=== PATIENT | male | born 1975 | race Caucasian/White ===

== ENCOUNTER 2019-06-01 21:11 | Inpatient (IN) | payer MEDICAID, SELFPAY ==
--- NOTE | ~2019-06-01 | XR_ITS ---
EXAMINATION: XR chest 2V EXAM DATE: 06/01/2019 22:41 INDICATION: Seizure. TECHNIQUE: Portable AP frontal chest x-ray was obtained. There is no prior study for comparison. FINDINGS: The lungs are clear. There are no pleural effusions. Cardiac silhouette is prominent but magnified on this AP technique. There is no pneumothorax suspected. The bones and soft tissues are unremarkable. IMPRESSION: No acute cardiopulmonary findings. Reviewed, dictated and finalized at location A.
--- NOTE | ~2019-06-01 | CT_ITS ---
EXAMINATION: CT brain wo con EXAM DATE: 06/01/2019 22:28 INDICATION: Seizure. Headache. TECHNIQUE: Spiral CT of the head was performed without contrast. Axial, coronal and sagittal images were reviewed. The dose-length product (DLP) for this examination was 681.00 mGy-cm. The exposure w as tailored according to patient size, and iterative reconstruction (ASIR) was used as additional dos e reduction technique. There is no prior study for comparison. FINDINGS: There is no acute intraparenchymal hemorrhage. No evidence of intraparenchymal brain mass lesion. No evidence of acute infarction. There is no mass effect or midline shift. The ventricles are normal in size. There are no extra-axial collections. There are no acute calvarial fractures. T he orbits are unremarkable. Soft tissue is unremarkable. The visualized sinuses and mastoid air jaimee ls are well aerated. IMPRESSION: 1. No acute intracranial findings. Reviewed, dictated and finalized at location A.
[2019-06-01 21:15] VITALS: BP 117/74; PULSE 73; RESP 16; TEMP 36.9; O2SAT 100
--- NOTE | 2019-06-01 21:22 | ECG_ITS ---
Measurements Intervals [place] Rate: 70 P: 71 DE: 132 QRS: 84 QRSD: 116 T: 84 QT: 388 QTc: 420 Interpretive Statements SINUS RHYTHM WITH SINUS ARRHYTHMIA RSR' IN V1 OR V2, CONSIDER RIGHT VENTRICULAR HYPERTROPHY OR RIGHT VCD ST ELEVATION IN DIFFUSE LEADS- PROBABLY EARLY REPOLARIZATION BASELINE WANDER- I, AVR, AVL, AVF BORDERLINE ECG Electronically Signed On 06-02-2019 7:42:13 CDT by Cornelius Carmichael D.O.
--- NOTE | 2019-06-01 21:23 | ED.GENADULT ---
HPI - General Adult General Chief complaint: Seizure Stated complaint: sz Time Seen by Provider: 06/01/19 21:23 Source: patient Mode of arrival: wheelchair Limitations: no limitations History of Present Illness HPI narrative: Patient is a 44-year-old male with a history of seizure disorder currently taking Keppra who presents for evaluation of numerous breakthrough seizures. Patient reportedly was seen at [facility] yesterday due to numerous breakthrough seizures had an overnight observation was discharged home with a prescription for Keppra 500 mg twice daily, but family states they have continued to have 5 seizures today. Patient at times will have urinary incontinence, no respiratory symptoms that the patient's has noticed. Patient's states that he has been taking Benadryl nightly to help him sleep, patient reports alcohol use, but the patient's states that there is no alcohol kept in their home. When I asked the patient, he states he gets alcohol from the dryer. Otherwise, the patient is alert and oriented to person, place and to time. He is not forthcoming with information. He is not currently postictal. He is able to follow commands and has no complaints. Patient also reports daily marijuana use, he denies other drug use. Patient's states that she does not know much about his medical information because he does not share all of this with her. She believes that he may be taking some testosterone supplementation which he gets through mail order prescription. Per chart review, patient has also been on Dilantin in the past. Pt has not been medicated for seizures until yesterday per family. states patient had been off of medication for over 18 months and did not have any recurrent seizures until yesterday. Pt's does now know the name of former neurologist. Related Data Allergies Allergy/AdvReac Type Severity Reaction Status Date / Time No Known Allergies Allergy Mild Unverified 12/15/03 08:35 Review of Systems Review of Systems: Narrative: CONSTITUTIONAL: Denies fever, chills, or sweats. EYES: Denies visual changes, redness, or discharge. ENT: Denies rhinorrhea, congestion, sore throat, or otalgia. CARDIOVASCULAR: Denies chest pain, palpitations, or edema. RESPIRATORY: Denies cough or dyspnea. GASTROINTESTINAL: Denies abdominal pain, nausea, vomiting, or diarrhea. GENITOURINARY: Denies dysuria or hematuria. SKIN: Denies rash or itching. MUSCULOSKELETAL: Denies back pain, joint pain, or myalgia. NEUROLOGIC: Denies headache, numbness, or weakness. PSYCHIATRIC: Reports anxiety and difficulty sleeping PMFSH Past Medical History Medical History (Updated 06/01/19 @ 23:45 by Mari Bonner MD) Closed fracture nasal bone History of seizure Marijuana use Sialadenitis Surgical History Surgical History (Updated 06/01/19 @ 21:58 by Mari Bonner MD) History of nasal surgery Social History Social History (Updated 06/01/19 @ 21:58 by Mari Bonner MD) Smoking status: Current every day smoker Tobacco type: cigarettes Alcohol intake: current Substance use: current Substance use type: marijuana Living arrangements: with family Gender identity (if verbalized by the patient): Male Exam Narrative: Exam Narrative: GENERAL: Awake, alert, conversant HEAD: Normocephalic, atraumatic. EYES: PERRLA and EOMI. ENT: Nares clear, no rhinorrhea or epistaxis. Mucous membranes moist. No tongue laceration or abrasions. NECK: Supple. CHEST: No respiratory distress, breathing even and non labored HEART: Regular rate, sinus rhythm ABDOMEN:Non distended, non tender EXTREMITIES: Normal range of motion. No edema. SKIN: Warm, dry, no rash. NEURO:No focal deficits. Alert and oriented x3. Finger to nose intact bilaterally. EOMs intact without nystagmus. No facial droop/asymmetry noted bilaterally. Grimace intact. Intact sensation in face. Hearing intact bilaterally. Shoulder shrug intact.
[2019-06-01] MEDS: levETIRAcetam 1000MG/NACL100ML 1,000 MG/100 ML BAG 400 MG IVPB (21:55)
[2019-06-01 21:57] VITALS: PULSE 75
[2019-06-01 22:00] LABS: Basophils Absolute Auto 0.1 K/mm3 (0.0-0.1); Basophils Percent Auto 0.9 % (0.2-1.2); Eosinophils Absolute Auto 0.2 K/mm3 (0-0.3); Eosinophils Percent Auto 1.2 % (0-4.4); Hemoglobin 12.9 g/dL (14.0-18.0); Immature Granulocyte Absolute 0.04 K/mm3 (0.00-0.031); Immature Granulocyte Percent A 0.3 % (0-0.5); Lymphocytes Absolute Auto 3.26 K/mm3 (0.9-3.2); Lymphocytes Percent Auto 26.1 % (18.3-44.2); Mean Corpuscular HGB Conc 32.3 g/dl (32-36); Mean Corpuscular Volume 89.9 fl (80-100); Mean Platelet Volume 11.1 fl (7.4-10.4); Monocytes Absolute Auto 0.8 K/mm3 (0.1-0.6); Monocytes Percent Auto 6.4 % (2.6-8.5); Neutrophils Absolute Auto 8.1 K/mm3 (1.3-6.7); Neutrophils Percent Auto 65.1 % (45.5-73.1); Platelet Count Result 390 k/mm3 (150-375); Red Blood Count 4.45 M/mm3 (4.6-6.20); Red Cell Distribution Width 14.4 % (11.5-14.5); White Blood Count 12.5 K/mm3 (4.5-10.0)
[2019-06-01 22:04] VITALS: BP 131/85; PULSE 65; RESP 16; O2SAT 98
[2019-06-01] MEDS: LORAZEPAM INJ 2 MG/ML VIAL 1 MG IV PUSH (22:04)
[2019-06-01 22:12] LABS: Blood Urea Nitrogen 13 mg/dL (9-20); Calcium 8.5 mg/dL (8.4-10.2); Carbon Dioxide 26 mmol/L (22-30); Chloride 102 mmol/L (98-107); Estimated Glomerular Filt Rate > 60; Glucose 121 mg/dL (75-110); Potassium 3.3 mmol/L (3.4-5.0); Sodium 136 mmol/L (137-145)
--- NOTE | 2019-06-01 22:30 | PC.NURSE ---
pt down to ct
--- NOTE | 2019-06-01 23:00 | PC.NURSE ---
asked pt for urine.
[2019-06-01 23:32] VITALS: BP 117/74; PULSE 65; RESP 13; O2SAT 97
[2019-06-02 00:07] LABS: Add Urine Microscopic? YES; Appearance Urine Clear (Clear); Bacteria Urine Trace /hpf; Bilirubin Urine Negative (Negative); Blood Urine Negative (Negative); Color Urine Yellow (Yellow); Glucose Urine UA Negative (Negative); Ketones Urine Negative (Negative); Leukocyte Esterase Ur Negative LEU/UL (Negative); Mucus Urine Moderate /lpf; Nitrate Urine Negative (Negative); Protein Urine 1+ mg/dL (Negative)
[2019-06-02 00:10] LABS: Amphetamine Screen Urine Negative (Negative); Barbiturate Screen Urine Negative (Negative); Benzodiazepines Screen Urine Negative (Negative); Cannabinoid Screen Urine Positive (Negative); Cocaine Screen Urine Negative (Negative); Methadone Screen Urine Negative (Negative); Opiate Screen Urine Negative (Negative); Phencyclidine Screen Urine Negative (Negative)
[2019-06-02 00:17] VITALS: BP 109/52; PULSE 69; RESP 19; O2SAT 97
--- NOTE | 2019-06-02 00:30 | ADMGEN ---
This patient, Tristin Garza, was admitted to 2 Medical Room 257-01. Patient/family oriented to hospital policies and general routines including ID bracelet, bed and alarms, visiting hours, pain management, procedures, bathroom and other care routines, personal items, smoking policy, room service/diet, and visiting hours. Valuables list has been completed. Information on how to activate the Rapid Response Team has been discussed. Patient/Family are encouraged to report perceived risks to care and to ask questions if they do not understand what they are told or what they should do.
--- NOTE | 2019-06-02 01:55 | PM.IMHP ---
H&P: HPI History of Present Illness Chief complaint: Breakthrough Seizure Narrative: This is a 44 year old male with known history of seizure disorder who presented to our ER tonight after experiencing several seizures yesterday. Apparently the patient stopped taking his dilantin over 1 year ago and was doing well until he started to have seizures two days ago. He was seen at [facility] 2 days ago and discharged home on Keppra 500 mg BID. The patient's became worried this evening because the patient was having multiple seizures lasting about 1 minute in duration and appeared to stop breathing. The patient was evaluated in our ER and CT brain was unremarkable for any acute pathology. ER provider has consulted Neurology who has asked that we admit the patient to the hospital for further evaluation and observation. The patient has been loaded with keppra IV in the ER tonight. ON my encounter with the patient he is very somnolent and easy to arouse but quickly falls asleep as I attempt to get a history from him. No further details are obtainable at this time due to his somnolent state. The patient is alone and his family is not present. It is noteworthy that his did mention to the ER provider that the patient has a history of alcohol use although there is no alcohol at home. I also do not know how much dilantin the patient had been taking last year. Currently he denies any symptoms. Review of Systems Review of Systems: ROS unobtainable: Yes unobtainable due to medical condition and unobtainable due to mental status PMFSH Past Medical History Medical History Closed fracture nasal bone History of seizure Marijuana use Sialadenitis Surgical History Surgical History History of nasal surgery Social History Social History Smoking packs per day: 1 Smoking cigarettes per day: 20.0 Years smoked: 20 Smoking pack-years: 20.00 Smoking status: Current every day smoker Tobacco type: cigarettes Second hand tobacco smoke exposure: Yes Alcohol intake: current Drinks per week: 30 Substance use: never Substance use type: marijuana Living arrangements: with family Gender identity (if verbalized by the patient): Male Spiritual care concerns: No Agree to blood products: Yes Comments Family medical history is unknown and unobtainable at this time. Meds Home Medications and Allergies Allergies Allergy/AdvReac Type Severity Reaction Status Date / Time No Known Allergies Allergy Mild Unverified 12/15/03 08:35 Vital Signs Vital Signs - 24 hr 06/01/19 21:15 06/01/19 21:57 06/01/19 22:04 Temperature 36.9 C Pulse Rate 73 75 65 Respiratory Rate 16 16 Blood Pressure 117/74 131/85 Pulse Oximetry 100 98 06/01/19 23:32 06/02/19 00:17 Temperature Pulse Rate 65 69 Respiratory Rate 13 19 Blood Pressure 117/74 109/52 L Pulse Oximetry 97 97 Exam Const: General: cooperative, no acute distress and other (somnolent but arousable) Nutritional Appearance: well nourished Orientation/consciousness: oriented to person and oriented to place HENMT: Head: normal to inspection General nose exam: Normal external nose present Face and sinus: normal facial exam Mouth: Yes Normal oral and palatal mucosa present and Yes oropharynx normal Eyes: Pupils: Equal, round and reactive pupils present EOM: EOMs intact bilaterally Neck: Neck: supple and no JVD Thyroid: thyroid normal Lymphatic: lymphadenopathy not noted Resp: Effort & Inspection: normal respiratory effort Auscultation: clear to auscultation bilaterally Cardio: Rate: regular rate Rhythm: regular rhythm Heart sounds: no murmurs GI: Inspection: normal to inspection Auscultation: normal bowel sounds Skin: General skin exam: normal color and no rashes or lesions noted
[2019-06-02 02:00] VITALS: BP 105/56; PULSE 60; RESP 20; TEMP 36.2; O2SAT 99
[2019-06-02 02:39] VITALS: BMI 22.6
[2019-06-02] MEDS: KCL 20 MEQ/SW 100 ML 100 ML 50 MEQ IVPB (03:30)
[2019-06-02 04:00] VITALS: PULSE 65
[2019-06-02 05:34] LABS: Basophils Absolute Auto 0.1 K/mm3 (0.0-0.1); Basophils Percent Auto 0.8 % (0.2-1.2); Eosinophils Absolute Auto 0.2 K/mm3 (0-0.3); Eosinophils Percent Auto 1.6 % (0-4.4); Hematocrit 36.4 % (42.0-52.0); Hemoglobin 11.7 g/dL (14.0-18.0); Immature Granulocyte Absolute 0.04 K/mm3 (0.00-0.031); Immature Granulocyte Percent A 0.4 % (0-0.5); Lymphocytes Absolute Auto 1.97 K/mm3 (0.9-3.2); Lymphocytes Percent Auto 18.7 % (18.3-44.2); Mean Corpuscular HGB Conc 32.1 g/dl (32-36); Mean Corpuscular Hemoglobin 29.4 pg (26-34); Mean Corpuscular Volume 91.5 fl (80-100); Mean Platelet Volume 10.7 fl (7.4-10.4); Monocytes Absolute Auto 0.9 K/mm3 (0.1-0.6); Neutrophils Absolute Auto 7.5 K/mm3 (1.3-6.7); Neutrophils Percent Auto 70.5 % (45.5-73.1); Platelet Count Result 327 k/mm3 (150-375); Red Blood Count 3.98 M/mm3 (4.6-6.20); Red Cell Distribution Width 14.2 % (11.5-14.5); White Blood Count 10.6 K/mm3 (4.5-10.0)
[2019-06-02 05:45] LABS: Blood Urea Nitrogen 12 mg/dL (9-20); Calcium 8.3 mg/dL (8.4-10.2); Carbon Dioxide 26 mmol/L (22-30); Chloride 105 mmol/L (98-107); Estimated CRCL calculation 82 ml/min; Estimated Glomerular Filt Rate > 60; Glucose 99 mg/dL (75-110); Magnesium 2.2 mg/dL (1.6-2.3); Potassium 4.1 mmol/L (3.4-5.0); Sodium 136 mmol/L (137-145)
[2019-06-02 06:00] VITALS: BP 113/65; PULSE 57; RESP 20; TEMP 37; O2SAT 98
--- NOTE | 2019-06-02 06:14 | PC.NURSE ---
Addendum entered by Grupo Velasquez RN 06/02/19 06:22: time of event [id number] Original Note: Pt jumped over the rails of the bed and ran into the bathroom and closed the door, pt then turned off the bathroom lights and was found wiping the woods with toilet paper and vigorously unrolling the toilet paper from the wall. Pt needed to be physically pulled from the bathroom and told repeatedly to sit down. Pt then began to obsessively pulling at his IV, armband, and shredding toilet paper. Pt required frequent redirection away from items in the room and his IV; he would acknowledge he should not do it then immediately begin again as if unable to stop himself. Pt was not aggressive or violent towards the staff at anytime and was AOxself only. Dr Espitia was called to assess pt and neurology was consulted with recommendation as well. We were able to return the patient to bed and he was cooperative with the diazepam injection ordered.
[2019-06-02 06:44] LABS: Thyroid Stimulating Hormone Reflex 0.772 uIU/mL (0.465-4.68)
[2019-06-02 08:00] VITALS: PULSE 80
[2019-06-02] MEDS: levETIRAcetam 500 MG TABLET 1000 MG PO (09:08)
[2019-06-02 12:00] VITALS: PULSE 69
--- NOTE | 2019-06-02 12:03 | CONS_ITS ---
DATE OF CONSULTATION: HISTORY OF PRESENT ILLNESS: This 44-year-old has been admitted to [facility] through the emergency room for the complaint of recurrent seizures. Reportedly, patient is known to have seizure disorder, was supposed to take the Dilantin, which he started about 1 year ago and was doing well up until yesterday when he started having seizures. He was seen at [facility] about a couple of days ago and discharged home on Keppra 500 mg twice a day, but in the evening on the day of admission, he was having recurrences and brought him to the hospital. He was initially evaluated in the emergency room, where CT scan of the brain was done, which was unremarkable. The patient was loaded with Keppra intravenously in the emergency room. By the time he was seen by the hospital, he was definitely very somnolent. The patient does have ongoing history of alcohol use as well. In addition to the past history of marijuana use, nasal bone fracture, sialadenitis. He had history of smoking 20 packs per year and also currently smoking and drinking 30 per week. ALLERGIES: HE IS NOT ALLERGIC TO ANY MEDICATION. PHYSICAL EXAMINATION: VITAL SIGNS: Evaluation up until now revealed him to be afebrile with pulse of 73, respirations 16, blood pressure 117/74. HEAD: Normocephalic with no cranial bruit. Ear, nose, throat examination normal. NECK: Supple with no cervical bruit. No thyromegaly. No lymphadenopathy. HEART: Regular. LUNGS: Clear. ABDOMEN: Soft. NEUROLOGICAL: He is somnolent. Pupils were round regular. Ramirez of vision full. Extraocular movements full. Face symmetrical. Tongue midline. Motor examination revealed fairly symmetrical strength and reflexes sluggish. Plantars downgoing. LABORATORY STUDIES: Investigation up until now revealed him to have leukocytosis with WBC of 12.5, hemoglobin 12.9, platelet count of 390. Basic metabolic panel normal with the sodium of 136 and potassium 3.3, borderline low. UA is normal. CT scan of the head negative and chest x-ray also was negative. Since admission, the patient has been started on the same Keppra, which has been switched from the intravenous to p.o. and further adjustment will be made accordingly. JAIMIE Trever GREEN ICICLE MACHINE OPERATOR ICICLE MACHINE OPERATOR D I MT: Ezio
--- NOTE | 2019-06-02 13:21 | PM.DS ---
DS: Diagnosis Admitting Diagnosis Admitting Diagnosis: Epilepsy, unspecified, not intractable, without status epilepticus Discharge Diagnosis (1) Recurrent seizures: Code(s): G40.909 - Epilepsy, unspecified, not intractable, without status epilepticus Status: Acute Assessment and Plan: Recurrent seizures likely secondary to the patient's nonadherence with his antiepileptic medication Dilantin. Seizure precautions in place. Neurology was consulted from the ER and Dr. Padron evaluated the patient and feels like he can be discharged on Keppra 1000 mg Q12hrs. The patient denies picking up the Keppra prescription when he was discharged from [place] a few days ago. He was educated on compliance with medications to prevent further seizures from occurring. He does not have a Neurologist and will have him follow up with Dr. Padron in 2 weeks. He does not have a PCP to follow up with to get medication refills on his Keppra. He understands and agrees with the plan. All questions answered. (2) Leukocytosis: Qualifiers: Leukocytosis type: unspecified Qualified Code(s): D72.829 - Elevated white blood cell count, unspecified Code(s): D72.829 - Elevated white blood cell count, unspecified Status: Acute Assessment and Plan: Likely secondary to acute seizures. Slightly elevated still today it 10,600. Urinalysis was negative for any acute infection as well as chest x-ray. He denies any acute symptoms or illness. (3) Normocytic anemia: Code(s): D64.9 - Anemia, unspecified Status: Acute Assessment and Plan: acute vs. chronic anemia? No signs of acute blood loss. H&H has been stable with a hemoglobin of 11.7 and hematocrit 36.4%. Will have him follow-up with a primary care provider upon discharge. (4) Hypokalemia: Code(s): E87.6 - Hypokalemia Status: Acute Assessment and Plan: We will replace with 20 mEq of KCL. Potassium this morning was normal at 4.1. DS: Summary Hospital Course Reason for hospitalization: Patient is a 44-year-old man with a history of seizure disorder who presented to the emergency department after having multiple breakthrough seizures prior to arrival. The patient believes he was diagnosed with seizures about fiber 10 years ago. He was on Dilantin for multiple years and stopped taking the medication about 1 year ago. He did not have a seizure until a few days ago and he went to [facility] where he was treated and discharged on oral Keppra 500 mg twice a day. The patient states he never picked up the medication after discharge, than prior to arrival he had another few seizures that were witnessed by his family. He came to our hospital where he was evaluated and treated with IV Keppra with improvement. The patient's initial vitals were normal. Initial labs showed slight leukocytosis which is most likely secondary to acute seizure. Slight hypokalemia at 3.3 which was replaced. Urine drug screen was positive for cannabinoids. Head CT showed no acute intracranial findings. Chest x-ray showed no acute cardiopulmonary findings. He was admitted into the hospital for IV Keppra. Neurology evaluated the patient today felt he could be discharged home on oral Keppra 1000 mg q.12 hours. The patient is otherwise feeling well and at his baseline at this time. Patient does not have a neurologist to follow up with so I referred him to Dr. Padron who evaluated him today. The patient also does not have a primary care provider so he will need to follow up with Dr. Padron within 1-2 weeks for refills of his seizure medication. Seizure warnings given. The patient understands and agrees the plan all questions answered.
[2019-06-04 15:36] LABS: Levetiracetam Keppra 21.7 mcg/mL (12.0-46.0)
== END 2019-06-02 14:54 | disposition home or self-care (01) | DRG 53 ==
LOC: ANHED 23:52 → ANH2MED 23:58
PROVIDERS: Admitting Provider Family Medicine; Emergency Provider Emergency Medicine; Visit Provider Family Medicine
DX: G40.909 Epilepsy, unspecified, not intractable, without status epilepticus (principal); Z91.128 Patient's intentional underdosing of medication regimen for other reason; T42.0X5A Adverse effect of hydantoin derivatives, initial encounter; D64.9 Anemia, unspecified; E87.6 Hypokalemia; F17.210 Nicotine dependence, cigarettes, uncomplicated
CPT/HCPCS: 36415; 70450; 71046; 80048; 80177; 80307; 81001; 83735; 84443; 85025; 93005; 96375; 99285; A9270; J1953; J2060; J3360; J3480